=== PATIENT | female | born 1940 | race Caucasian/White ===

== ENCOUNTER → 2019-01-02 | Outpatient (CLI) | payer OTHER ==
[~2019-01-02] MED LIST: ASPIR 8181 MG PO; ATIVAN0.5 MG PO; AUGMENTIN 875875 MG PO; CYMBALTA60 MG PO; FISH OIL 1,001000 M2 PO; GLUCOTROL5 MG PO; HYDROCODONE-AP1 EAC6 PO; MELATONIN3 MG PO; MOBIC15 MG PO; PIOGLITAZONE15 MG PO; PROTONIX40 M1 PO; REMERON15 MG PO; SIMVASTATIN40 MG PO; TRAZODONE HCL100 MG PO; VITAMIN B-12500 MCG PO; VITAMIN D-32000 UNIT PO; XARELTO10 MG PO
== END ==
LOC: MRI 09:41
DX: R90.82 White matter disease, unspecified (principal); G31.9 Degenerative disease of nervous system, unspecified; J34.89 Other specified disorders of nose and nasal sinuses; F03.90 Unspecified dementia, unspecified severity, without behavioral disturbance, psychotic disturbance, mood disturbance, and anxiety; F32.9 Major depressive disorder, single episode, unspecified